=== PATIENT | female | born 1960 | race Hispanic/Latino ===

== ENCOUNTER → 2023-10-04 | Emergency (ER) | payer BC ==
[~2023-10-04] MED LIST: LORazepam 2 MG/ML VIAL ONE; NA CHLORIDE 0.9% 1,000 ML ONE
[2023-10-05 01:00] LABS: Absolute Lymphocytes (CBC) 2.8 K/uL (0.7-4.9); Hematocrit 40.1 % (36.0-45.0); Lymphocytes % 35.5 % (15.3-44.8); MCV 89.3 fL (80-100); MPV 9.6 fL (7.6-11.3); Platelets 229 thou/uL (152-406); RBC Red Blood Cell Count 4.49 M/uL (3.86-4.86)
[2023-10-05 01:12] LABS: Albumin 3.8 g/dL (3.4-5.0); Bilirubin Total 0.6 mg/dL (0.2-1.0); Potassium 3.6 mEq/L (3.5-5.1)
--- NOTE | 2023-10-05 02:42 | ER ---
Nurse's Notes [facility] Name: Margarita Gunter Age: 63 yrs Sex: Female : 1960 Arrival Date: 10/04/2023 Time: 21:28 Bed 7 Private MD: Diagnosis: Abdominal pain, unspecified;Anxiety disorder, unspecified;Nausea with vomiting, unspecified Presentation: 10/04 21:50 Chief complaint: Patient states: Pt c/o abdominal bloating/inflammation, nausea, tl4 vomiting x 2 weeks. Pt also c/o increased anxiety and inability to eat x 1 month. No relief with prescribed medications. Coronavirus screen: At this time, the client does not indicate any symptoms associated with coronavirus-19. Ebola Screen: No symptoms or risks identified at this time. Initial Sepsis Screen: Does the patient meet any 2 criteria? No. Patient's initial sepsis screen is negative. Does the patient have a suspected source of infection? No. Patient's initial sepsis screen is negative. Risk Assessment: Do you want to hurt yourself or someone else? Patient reports no desire to harm self or others. Onset of symptoms was September 21, 2023. 21:50 Method Of Arrival: Ambulatory tl4 21:50 Acuity: VIVI 3 tl4 Triage Assessment: 21:54 General: Appears in no apparent distress. Behavior is calm, cooperative. Pain: Denies tl4 pain. EENT: No deficits noted. No signs and/or symptoms were reported regarding the EENT system. Neuro: No deficits noted. Denies weakness dizziness, headache. Cardiovascular: No deficits noted. Denies chest pain, diaphoresis, fatigue, lightheadedness, palpitations. Respiratory: No deficits noted. Denies cough, shortness of breath. GI: Reports bloating, nausea, vomiting, inability to eat. : No deficits noted. No signs and/or symptoms were reported regarding the genitourinary system. Derm: No deficits noted. No signs and/or symptoms reported regarding the dermatologic system. Musculoskeletal: No deficits noted. No signs and/or symptoms reported regarding the musculoskeletal system. Historical: - Allergies: 21:53 No Known Allergies; tl4 - PMHx: 21:53 Hypertensive disorder; Anxiety; tl4 - Immunization history:: Adult Immunizations unknown. - Social history:: Smoking status: Patient denies any tobacco usage or history of. Screenin/13 00:[address] [facility] ED Fall Risk Assessment (Adult) History of falling in the last 3 months, jj7 including since admission No falls in past 3 months (0 pts) Confusion or Disorientation No (0 pts) Intoxicated or Sedated No (0 pts) Impaired Gait Yes (1 pt) Mobility Assist Device Used No (0 pt) Altered Elimination No (0 pt) Score/Fall Risk Level 0 - 2 = Low Risk Oriented to surroundings, Maintained a safe environment, Educated pt \T\ family on fall prevention, incl call for assistance when getting out of bed. Abuse screen: Denies threats or abuse. Nutritional screening: No deficits noted. Tuberculosis screening: No symptoms or risk factors identified. Assessment: 00:30 General: Appears in no apparent distress. comfortable, Behavior is calm, cooperative, jj7 appropriate for age. Pain: Denies pain. GI: Abdomen is flat, Abd is soft and non tender X 4 quads. Abd is non tender X 4 quads Reports bloating. Vital Signs: 10/04 21:50 BP 125 / 61; Pulse 68; Resp 16; Temp 97.3; Pulse Ox 100% on R/A; Pain 0/10; tl4 10/05 00:30 BP 140 / 83; Pulse 71; Resp 19; Pulse Ox 100% ; jj7 01:30 BP 138 / 73; Pulse 87; Resp 16; Pulse Ox 100% ; jj7 02:30 BP 116 / 63; Pulse 77; Resp 16; Pulse Ox 98% ; Pain 0/10; jj7 10/04 21:50 Pain Scale: Adult tl4 02:30 Pain Scale: Adult j7 ED Course: 10/04 21:34 Patient arrived in ED. gm2 21:53 Triage completed. tl4 21:55 Arm band placed on right wrist. tl4 22:01 Rd Lonogria PA is PHCP. cp 22:01 Zach Dudley MD is Attending Physician. cp 10/05 00:30 Patient has correct armband on for positive identification. Bed in low position. Call jj7 light in reach. Adult w/ patient. 00:30 Inserted saline lock: 20 gauge in right antecubital area, using aseptic technique. jj7 Blood collected. 00:41 CBC with Diff Sent. jj7 00:41 CMP Sent. jj7 00:41 Lipase Sent. jj7 01:31 CT Abd/Pelvis - IV Contrast Only In Process Unspecified. EDMS 02:41 Jose Lemons MD is Referral Physician. cp 03:00 No provider procedures requiring assistance completed. IV discontinued, intact, jj7 bleeding controlled, No redness/swelling at site. Pressure dressing applied. Administered Medications: 00:41 Drug: NS 0.9% IV 500 ml IV at bolus once Route: IV; Rate: bolus; Site: right jj7 antecubital; 01:18 Follow up: IV Status: Completed infusion jj7 01:19 Drug: NS 0.9% IV 500 ml IV at 125 ml/hr continuous Route: IV; Rate: 125 ml/hr; Site: jw right antecubital; 02:52 Follow up: IV Status: Order to discontinue infusion jj7 01:20 Drug: Ativan IVP 1 mg IVP once Route: IVP; Site: right antecubital; jj7 01:45 Follow up: Response: Marked relief of symptoms jj7 Medication: 00:30 VIS not applicable for this client. jj7 Outcome: 02:41 Discharge ordered by . cp 03:00 Discharged to home ambulatory, with family, jj7 03:00 Condition: improved 03:00 Discharge instructions given to patient, family, Instructed on discharge instructions, follow up and referral plans. medication usage, Demonstrated understanding of instructions, follow-up care, medications, Prescriptions given X 2, 03:01 Patient left the ED. jj7 Signatures: Dispatcher [employer] EDSD Rd Longoria PA PA cp Waits, Jodi, RN RN jw7 uS Mejía RN RN jj7 Torie Altman 2 Eagle Altamirano RN RN tl4
--- NOTE | 2023-10-05 02:42 | EDPHYS ---
Physician Documentation [facility] Name: Margarita Gunter Age: 63 yrs Sex: Female : 1960 Arrival Date: 10/04/2023 Time: 21:28 Bed 7 Private MD: ED Physician Zach Dudley HPI: 10/04 23:20 This 63 yrs old Female presents to ER via Ambulatory with complaints of cp Abdominal Pain, unable to eat. 23:20 The patient presents with abdominal pain that is diffuse, abdominal distention that is cp diffuse. Onset: The symptoms/episode began/occurred 2 week(s) ago. The symptoms do not radiate. 23:20 Associated signs and symptoms: Pertinent positives: nausea and vomiting, anorexia, cp increased anxiety, Pertinent negatives: chest pain, constipation, diarrhea, fever, vomiting blood. Severity of pain: in the emergency department the pain is unchanged. Historical: - Allergies: 21:53 No Known Allergies; tl4 - PMHx: 21:53 Hypertensive disorder; Anxiety; tl4 - Immunization history:: Adult Immunizations unknown. - Social history:: Smoking status: Patient denies any tobacco usage or history of. ROS: 23:30 Cardiovascular: Negative for chest pain, edema, palpitations, cp 23:30 Eyes: Negative for injury, pain, redness, and discharge, cp 23:30 Constitutional: Negative for body aches, chills, fever, poor PO intake, 23:30 ENT: Negative for drainage from ear(s), ear pain, sore throat, difficulty swallowing, difficulty handling secretions, 23:30 Respiratory: Negative for cough, shortness of breath, wheezing, 23:30 Abdomen/GI: Positive for abdominal pain, nausea and vomiting, anorexia, Negative for diarrhea, hematemesis, black/tarry stool, rectal bleeding, 23:30 : Negative for urinary symptoms, 23:30 Neuro: Negative for altered mental status, dizziness, headache, syncope, weakness, 23:30 Psych: Positive for anxiety, 23:30 All other systems are negative, Exam: 23:33 Constitutional: The patient appears in no acute distress, alert, awake, cp non-diaphoretic, non-toxic, well developed, well nourished, 23:33 Head/Face: Normocephalic, atraumatic. cp 23:33 Eyes: Periorbital structures: appear normal, Conjunctiva: normal, no exudate, no injection, Sclera: no appreciated abnormality, Lids and lashes: appear normal, bilaterally, 23:33 ENT: External ear(s): are unremarkable, Nose: is normal, Mouth: Lips: moist, Oral mucosa: pink and intact, moist, Posterior pharynx: Airway: no evidence of obstruction, patent, Tonsils: are normal in appearance, erythema, is not appreciated, exudate, is not appreciated, 23:33 Chest/axilla: Inspection: normal, 23:33 Cardiovascular: Rate: normal, Rhythm: regular, Edema: is not appreciated, JVD: is not appreciated, 23:33 Respiratory: the patient does not display signs of respiratory distress, Respirations: normal, no use of accessory muscles, no retractions, Breath sounds: are clear throughout, no decreased breath sounds, no stridor, no wheezing, 23:33 Abdomen/GI: Inspection: abdomen appears normal, Bowel sounds: active, all quadrants, Palpation: soft, in all quadrants, mild abdominal tenderness, in the right upper quadrant and left upper quadrant, rebound tenderness, is not appreciated, involuntary guarding, is not appreciated, 23:33 : CVA tenderness, is absent, 23:33 Neuro: Orientation: to person, place \T\ time. Mentation: is normal, Motor: moves all fours, strength is normal, Vital Signs: 21:50 BP 125 / 61; Pulse 68; Resp 16; Temp 97.3; Pulse Ox 100% on R/A; Pain 0/10; tl4 13 00:30 BP 140 / 83; Pulse 71; Resp 19; Pulse Ox 100% ; jj7 01:30 BP 138 / 73; Pulse 87; Resp 16; Pulse Ox 100% ; jj7 02:30 BP 116 / 63; Pulse 77; Resp 16; Pulse Ox 98% ; Pain 0/10; jj7 10/04 21:50 Pain Scale: Adult tl4 02:30 Pain Scale: Adult jj7 MDM: 10/04 22:01 Patient medically screened. cp 10/05 02:40 Data reviewed: vital signs, nurses notes, lab test result(s), radiologic studies, CT cp scan. 02:40 Differential diagnosis: cholecystitis, Cholelithiasis, pancreatitis, Peptic Ulcer cp Disease, Pyelonephritis, Ureterolithiasis, urinary tract infection. I considered the following discharge prescriptions or medication management in the emergency department Medications were administered in the Emergency Department. See MAR. Care significantly affected by the following chronic conditions: Hypertension. Response to treatment: the patient's symptoms have markedly improved after treatment, and as a result, I will discharge patient. Special discussion: Based on the patient's Hx, exam, and Dx evaluation, there is no indication for emergent surgery or inpatient Tx. It is understood by the patient/guardian that if the Sx's persist or worsen they need to return immediately for re-evaluation. 10/04 23:14 Order name: CBC with Diff; Complete Time: 01:17 cp 10/04 23:14 Order name: CMP; Complete Time: : cp 10/05 01:17 Interpretation: Reviewed. cp 10/04 23:14 Order name: Lipase; Complete Time: 01:17 cp 10/04 23:53 Order name: CT Abd/Pelvis - IV Contrast Only cp 10/04 23:14 Order name: IV Saline Lock; Complete Time: 00:41 cp 10/04 23:14 Order name: Labs collected and sent; Complete Time: 00:41 cp Administered Medications: 00:41 Drug: NS 0.9% IV 500 ml IV at bolus once Route: IV; Rate: bolus; Site: right [facility] antecubital; 01:18 Follow up: IV Status: Completed infusion jj7 01:19 Drug: NS 0.9% IV 500 ml IV at 125 ml/hr continuous Route: IV; Rate: 125 ml/hr; Site: [facility] right antecubital; 02:52 Follow up: IV Status: Order to discontinue infusion jj7 01:20 Drug: Ativan IVP 1 mg IVP once Route: IVP; Site: right antecubital; jj7 01:45 Follow up: Response: Marked relief of symptoms jj7 Disposition: 20:19 Co-signature as Attending Physician, Zach Dudley MD I agree with the assessment sp4 and plan of care. I reviewed the patient's care provided by the Advanced Practice Provider and agree with the diagnosis and treatment plan. Disposition Summary: 10/05/23 02:41 Discharge Ordered Notes: Location: Home cp Problem: new cp Symptoms: have improved cp Condition: Stable cp Diagnosis - Abdominal pain, unspecified cp - Anxiety disorder, unspecified cp - Nausea with vomiting, unspecified cp Followup: cp - With: Jose Lemons MD - When: 2 - 3 days - Reason: Recheck today's complaints Discharge Instructions: - Discharge Summary Sheet cp - Abdominal Pain, Adult cp - Nausea and Vomiting, Adult cp - Generalized Anxiety Disorder, Adult cp Forms: - Medication Reconciliation Form cp - Thank You Letter cp - Antibiotic Education cp - Prescription Opioid Use cp - Patient Portal Instructions cp - Leadership Thank You Letter cp Prescriptions: - Protonix 40 mg Oral Tablet - take 1 tablet ORAL route once daily; 30 tablet; Refills: 0, Product Selection cp Permitted - promethazine 25 mg Oral Tablet - take 1 tablet ORAL route every 6 hours As needed; 20 tablet; Refills: 0, cp Product Selection Permitted Signatures: Dispatcher [employer] EDRd Hernandez PA PA cp Park Handley RN RN jw7 Su Mejía RN RN jj7 Zach Dudley MD MD sp4 Eagle Altamirano RN RN tl4
[2023-10-05 03:58] VITALS: BP 116/63; TEMP 97.3; O2SAT 98
--- NOTE | 2023-10-05 13:08 | RAD REPORT ---
EXAM DESCRIPTION: CT Abdomen Pelvis W Contrast CLINICAL HISTORY: The patient is 63 years old and is Female; ABD PAIN TECHNIQUE: Axial computed tomography images of the abdomen and pelvis with intravenous contrast. S agittal and coronal reformatted images were created and reviewed. This CT exam was performed using one or more of the following dose reduction techniques: automated exposure control, adjustment of t he mA and/or kV according to patient size, and/or use of iterative reconstruction technique. DLP: 1276 mGy*cm COMPARISON: None. FINDINGS: LUNG BASES: Lung bases are clear. No consolidation. HEART: Visualized heart is normal. ABDOMEN: LIVER: Hepatic steatosis. GALLBLADDER AND BILE DUCTS: Unremarkable. No calcified stones. No ductal dilation. PANCREAS: Unremarkable. No mass. No ductal dilation. SPLEEN: Unremarkable. No splenomegaly. ADRENALS: Unremarkable. No mass. KIDNEYS AND URETERS: Unremarkable. No solid mass. No hydronephrosis. STOMACH AND BOWEL: Unremarkable. No obstruction. No mucosal thickening. PELVIS: APPENDIX: The appendix is seen and is within normal limits. BLADDER: Bladder is decompressed. REPRODUCTIVE: Prior hysterectomy. ABDOMEN and PELVIS: INTRAPERITONEAL SPACE: Unremarkable. No free air. No significant fluid collection. BONES/JOINTS: Multilevel lumbar degenerative changes. No acute fracture. No dislocation. SOFT TISSUES: Unremarkable. VASCULATURE: Unremarkable. No abdominal aortic aneurysm. LYMPH NODES: Unremarkable. No enlarged lymph nodes. IMPRESSION: 1. No acute abdominal or pelvic abnormality. 2. Hepatic steatosis. Electronically signed by: Holland Jo DO 10/05/2023 02:12 AM [employer] Due to temporary technical issues with the PACS/Fluency reporting system, reports are being signed by the in house radiologist without review as a courtesy to ensure prompt reporting. The interpreting r adiologist is fully responsible for the content of the report.
== END ==
LOC: ER 21:28
DX: R10.10 Upper abdominal pain, unspecified (principal); F41.9 Anxiety disorder, unspecified; R11.2 Nausea with vomiting, unspecified; I10 Essential (primary) hypertension
CPT/HCPCS: 36415; 74177; Q9967